=== PATIENT | male | born 1990 | race Two or more races ===

== ENCOUNTER 2019-09-24 07:30 | Emergency (ER) | payer OTHER ==
[~2019-09-24] VITALS: Ht 180.3 cm; Wt 72.6 kg
[2019-09-24 07:37] VITALS: BP 132/77
--- NOTE | 2019-09-24 07:44 | NUR ---
AT BEDSIDE FOR EVAL.
[2019-09-24] MEDS ORDERED: ACETAMINOPHEN ES 500 MG TABLET ONE (07:45)
--- NOTE | 2019-09-24 07:54 | NUR ---
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
[2019-09-24] MEDS ORDERED: ACETAMINOPHEN ES 500 MG TABLET PO ONE (08:00)
--- NOTE | 2019-09-24 08:40 | NUR ---
Patient discharged to home in stable condition. Written and verbal after care instructions given. Patient verbalizes understanding of instruction.
== END 2019-09-24 08:51 | disposition home or self-care (01) ==
LOC: ER 07:36
DX: S42.035A Nondisplaced fracture of lateral end of left clavicle, initial encounter for closed fracture (principal); W18.09XA Striking against other object with subsequent fall, initial encounter; Y93.89 Activity, other specified; Y92.89 Other specified places as the place of occurrence of the external cause; Y99.8 Other external cause status
CPT/HCPCS: 73030-TC